=== PATIENT | female | born 1975 | race Caucasian/White ===

== ENCOUNTER 2020-04-13 22:43 | Inpatient (IN) | payer BC, OTHER ==
[~2020-04-13] VITALS: Ht 165.1 cm; Wt 79.3 kg
[2020-04-13] MEDS ORDERED: SODIUM CHLORIDE FLUSH 10ML SYR IVF ONE ×2 (23:00→23:30)
--- NOTE | 2020-04-13 23:06 | NUR ---
Patient presents to ER from [facility] c/o infection in her arm. Patient states she was bit by a dog a couple days ago; she got stitches in her hand and today, she is having pain all the way up her arm. Patient is in NAD. Respirations even and unlabored.
[2020-04-13] MEDS ORDERED: ONDANSETRON 2MG/ML, 2ML ONE (23:25)
[2020-04-13] MEDS ORDERED: HYDROmorphone 1 MG/ML, 1ML INJ ONE (23:25)
[2020-04-13] MEDS ORDERED: HYDROmorphone 1 MG/ML, 1ML INJ IVPush PRN (23:30)
[2020-04-13] MEDS ORDERED: ONDANSETRON 2MG/ML, 2ML IVPush ONE (23:30)
[2020-04-14] MEDS ORDERED: OMNIPAQUE 350 MG/ML, 100ML BOTTLE ONE (00:01)
[2020-04-14 00:24] LABS: BASOPHILS # (AUTO) 0.03 x10^3/uL (0-0.1); BASOPHILS % (AUTO) 0 % (0-1); EOSINOPHILS # (AUTO) 0.19 x10^3/uL (0-0.4); EOSINOPHILS % (AUTO) 2 % (1-7); LYMPHOCYTES # (AUTO) 1.65 x10^3/uL (1-3.4); LYMPHOCYTES % (AUTO) 16 % (22-44); MD NO; MEAN CORPUSCULAR HGB CONC 33.2 g/dL (32.4-35.8); MEAN CORPUSCULAR VOLUME 87.2 fL (80-100); MEAN PLATELET VOLUME 8.8 fL (7.4-10.4); MONOCYTES # (AUTO) 0.66 x10^3/uL (0.2-0.8); MONOCYTES % (AUTO) 7 % (2-9); NEUTROPHILS # (AUTO) 7.71 x10^3/uL (1.8-6.8); NEUTROPHILS % (AUTO) 75 % (42-75); PLATELET COUNT 247 x10^3/uL (130-400); RED BLOOD COUNT 4.36 x10^6/uL (3.82-5.3); RED CELL DISTRIBUTION WIDTH 14.2 % (9.6-15.2)
[2020-04-14] MEDS ORDERED: POLYETHYLENE GLYCOL 17 GM PACKET PO PRN (00:30)
[2020-04-14] MEDS ORDERED: DIPH,PERTUSS(ACELL),TET VAC/PF NC IM-VACC ONE (00:30)
[2020-04-14] MEDS ORDERED: BISACODYL 10 MG SUPP PR PRN (00:30)
[2020-04-14] MEDS ORDERED: hydrALAzine 20 MG/ML, 1ML IVPush PRN (00:30)
--- NOTE | 2020-04-14 00:30 | NUR ---
Report given to BRIGID Boo. Patient to be transferred to room 461.
[2020-04-14 00:33] LABS: ALBUMIN 3.6 g/dL (3.4-5.0); ANION GAP 5 mmol/L (5-15); CALCIUM 8.1 mg/dL (8.5-10.1); CHLORIDE 111 mmol/L (98-107); CREATININE 0.75 mg/dL (0.55-1.02)
[2020-04-14 00:44] VITALS: BP 94/62
[2020-04-14] MEDS ORDERED: PHARMACOKINETIC CONSULTATION MC ONE (01:00)
[2020-04-14] MEDS ORDERED: VANCOMYCIN PER PHARMACY MC PRN (01:00)
[2020-04-14] MEDS ORDERED: PHARMACOKINETIC MONITORING MC PRN (01:00)
[2020-04-14] MEDS: ACETAMINOPHEN 325 MG TABLET PO PRN ×3 (01:27→11:49)
[2020-04-14] MEDS: morphine SULFATE 10 MG/ML, 1ML IVPush PRN ×3 (01:28→15:24)
[2020-04-14] MEDS: POTASSIUM CHLORIDE 20 MEQ in LACTATED RINGERS 1,000 ML IV SCH ×2 (01:41→20:49)
[2020-04-14] MEDS: PIPERACILLIN/TAZO/PMX 3.375GM 50 ML IV SCH ×3 (01:41→17:52)
[2020-04-14] MEDS: VANCOMYCIN 1,300 MG in SODIUM CHLORIDE 0.9% 250 ML IV SCH ×2 (02:20→13:36)
[2020-04-14] MEDS: ENOXAPARIN 40 MG/0.4 ML SQ SCH (04:58)
[2020-04-14 06:06] VITALS: BP 88/56
[2020-04-14 07:53] VITALS: BP 96/62
[2020-04-14 08:28] LABS: BASOPHILS # (AUTO) 0.08 x10^3/uL (0-0.1); BASOPHILS % (AUTO) 1 % (0-1); EOSINOPHILS # (AUTO) 0.14 x10^3/uL (0-0.4); EOSINOPHILS % (AUTO) 1 % (1-7); LYMPHOCYTES # (AUTO) 1.66 x10^3/uL (1-3.4); LYMPHOCYTES % (AUTO) 17 % (22-44); MD NO; MEAN CORPUSCULAR HEMOGLOBIN 28.7 pg (27.0-34.8); MEAN CORPUSCULAR HGB CONC 32.5 g/dL (32.4-35.8); MEAN CORPUSCULAR VOLUME 88.5 fL (80-100); MONOCYTES # (AUTO) 0.64 x10^3/uL (0.2-0.8); MONOCYTES % (AUTO) 7 % (2-9); NEUTROPHILS # (AUTO) 7.08 x10^3/uL (1.8-6.8); NEUTROPHILS % (AUTO) 74 % (42-75); PLATELET COUNT 269 x10^3/uL (130-400); RED BLOOD COUNT 4.36 x10^6/uL (3.82-5.3); RED CELL DISTRIBUTION WIDTH 14.1 % (9.6-15.2)
[2020-04-14 08:39] LABS: ALANINE AMINOTRANSFERASE 35 U/L (12-78); ALBUMIN 3.5 g/dL (3.4-5.0); ANION GAP 7 mmol/L (5-15); CALCIUM 8.6 mg/dL (8.5-10.1); CHLORIDE 115 mmol/L (98-107); CREATININE 0.61 mg/dL (0.55-1.02)
[2020-04-14 08:41] LABS: ALKALINE PHOSPHATASE 40 U/L (45-117); BILIRUBIN,TOTAL 0.6 mg/dL (0.2-1.0); TOTAL PROTEIN 6.8 g/dL (6.4-8.2)
[2020-04-14] MEDS: SENNA/DOCUSATE TABLET PO SCH (09:00)
[2020-04-14] MEDS ORDERED: GADOTERATE 7.5 MMOL/15 ML SYR ONE (13:13)
[2020-04-14 13:43] VITALS: BP 103/69
[2020-04-14] MEDS: HYDROcodone/APAP 5/325 TABLET PO PRN ×2 (16:11→20:29)
[2020-04-14 19:07] VITALS: BP 94/60
[2020-04-15] MEDS: HYDROcodone/APAP 5/325 TABLET PO PRN (00:39)
[2020-04-15 00:56] VITALS: BP 90/61
[2020-04-15] MEDS: PIPERACILLIN/TAZO/PMX 3.375GM 50 ML IV SCH ×4 (01:52→23:28)
[2020-04-15] MEDS: VANCOMYCIN 1,300 MG in SODIUM CHLORIDE 0.9% 250 ML IV SCH ×2 (02:30→14:02)
[2020-04-15] MEDS: ENOXAPARIN 40 MG/0.4 ML SQ SCH (04:59)
[2020-04-15 05:38] LABS: ANION GAP 5 mmol/L (5-15); CALCIUM 8.3 mg/dL (8.5-10.1); CHLORIDE 111 mmol/L (98-107); CREATININE 0.68 mg/dL (0.55-1.02)
[2020-04-15 05:44] LABS: BASOPHILS # (AUTO) 0.04 x10^3/uL (0-0.1); BASOPHILS % (AUTO) 1 % (0-1); EOSINOPHILS # (AUTO) 0.26 x10^3/uL (0-0.4); EOSINOPHILS % (AUTO) 3 % (1-7); LYMPHOCYTES # (AUTO) 1.89 x10^3/uL (1-3.4); LYMPHOCYTES % (AUTO) 25 % (22-44); MD NO; MEAN CORPUSCULAR HEMOGLOBIN 29.3 pg (27.0-34.8); MEAN CORPUSCULAR HGB CONC 33.2 g/dL (32.4-35.8); MEAN CORPUSCULAR VOLUME 88.4 fL (80-100); MEAN PLATELET VOLUME 8.9 fL (7.4-10.4); MONOCYTES # (AUTO) 0.49 x10^3/uL (0.2-0.8); MONOCYTES % (AUTO) 7 % (2-9); NEUTROPHILS # (AUTO) 4.86 x10^3/uL (1.8-6.8); NEUTROPHILS % (AUTO) 64 % (42-75); PLATELET COUNT 244 x10^3/uL (130-400); RED CELL DISTRIBUTION WIDTH 14.4 % (9.6-15.2)
[2020-04-15] MEDS: ACETAMINOPHEN 325 MG TABLET PO PRN ×2 (07:35→12:20)
[2020-04-15] MEDS: SENNA/DOCUSATE TABLET PO SCH (07:35)
[2020-04-15 07:46] VITALS: BP 105/72
[2020-04-15] MEDS: ONDANSETRON 2MG/ML, 2ML IVPush PRN ×2 (09:26→15:13)
[2020-04-15] MEDS: POTASSIUM CHLORIDE 20 MEQ in LACTATED RINGERS 1,000 ML IV SCH (12:17)
[2020-04-15 14:05] VITALS: BP 108/72
[2020-04-15] MEDS ORDERED: IBUPROFEN 600 MG TABLET ONE (14:48)
[2020-04-15] MEDS: IBUPROFEN 600 MG TABLET PO PRN (14:49)
[2020-04-15 19:32] VITALS: BP 98/51
[2020-04-15] MEDS: BUTALB/APAP/CAFFEINE 50MG/325MG/40MG PO PRN (21:42)
[2020-04-16] MEDS: VANCOMYCIN 1,300 MG in SODIUM CHLORIDE 0.9% 250 ML IV SCH ×2 (02:18→14:17)
[2020-04-16 02:21] VITALS: BP 90/52
[2020-04-16] MEDS: BUTALB/APAP/CAFFEINE 50MG/325MG/40MG PO PRN ×3 (04:44→14:18)
[2020-04-16] MEDS: POTASSIUM CHLORIDE 20 MEQ in LACTATED RINGERS 1,000 ML IV SCH ×2 (04:44→23:18)
[2020-04-16] MEDS: ENOXAPARIN 40 MG/0.4 ML SQ SCH (04:45)
[2020-04-16] MEDS: PIPERACILLIN/TAZO/PMX 3.375GM 50 ML IV SCH ×4 (05:11→23:18)
[2020-04-16] MEDS: IBUPROFEN 600 MG TABLET PO PRN ×3 (05:15→16:59)
[2020-04-16 07:21] VITALS: BP 110/73
[2020-04-16 08:49] LABS: BASOPHILS # (AUTO) 0.05 x10^3/uL (0-0.1); BASOPHILS % (AUTO) 1 % (0-1); EOSINOPHILS # (AUTO) 0.16 x10^3/uL (0-0.4); EOSINOPHILS % (AUTO) 2 % (1-7); LYMPHOCYTES # (AUTO) 1.45 x10^3/uL (1-3.4); LYMPHOCYTES % (AUTO) 21 % (22-44); MD NO; MEAN CORPUSCULAR HEMOGLOBIN 28.6 pg (27.0-34.8); MEAN CORPUSCULAR HGB CONC 32.3 g/dL (32.4-35.8); MEAN CORPUSCULAR VOLUME 88.5 fL (80-100); MEAN PLATELET VOLUME 8.6 fL (7.4-10.4); MONOCYTES # (AUTO) 0.34 x10^3/uL (0.2-0.8); MONOCYTES % (AUTO) 5 % (2-9); NEUTROPHILS # (AUTO) 4.79 x10^3/uL (1.8-6.8); NEUTROPHILS % (AUTO) 71 % (42-75); PLATELET COUNT 279 x10^3/uL (130-400); RED BLOOD COUNT 4.23 x10^6/uL (3.82-5.3); RED CELL DISTRIBUTION WIDTH 14.3 % (9.6-15.2)
[2020-04-16 08:59] LABS: ANION GAP 7 mmol/L (5-15); CALCIUM 8.8 mg/dL (8.5-10.1); CHLORIDE 113 mmol/L (98-107); CREATININE 0.78 mg/dL (0.55-1.02)
[2020-04-16] MEDS: SENNA/DOCUSATE TABLET PO SCH (09:01)
[2020-04-16 13:23] VITALS: BP 99/66
[2020-04-16 16:27] VITALS: BP 118/81
[2020-04-16 20:16] VITALS: BP 117/77
[2020-04-17 00:11] VITALS: BP 113/73
[2020-04-17] MEDS: VANCOMYCIN 1,300 MG in SODIUM CHLORIDE 0.9% 250 ML IV SCH (02:00)
[2020-04-17] MEDS: ENOXAPARIN 40 MG/0.4 ML SQ SCH ×2 (05:00→08:54)
[2020-04-17] MEDS: PIPERACILLIN/TAZO/PMX 3.375GM 50 ML IV SCH ×2 (05:02→11:30)
[2020-04-17] MEDS: SENNA/DOCUSATE TABLET PO SCH (08:54)
[2020-04-17 08:55] VITALS: BP 106/71
[2020-04-17] MEDS ORDERED: AMOX1TAB64 PO (10:44)
[2020-04-17] MEDS ORDERED: ACET325T26 PO (10:44)
[2020-04-17] MEDS ORDERED: LACT1CAP35 PO (10:44)
[2020-04-17] MEDS: POTASSIUM CHLORIDE 20 MEQ in LACTATED RINGERS 1,000 ML IV SCH (12:04)
== END 2020-04-17 12:25 | disposition home or self-care (01) | DRG 603 ==
LOC: ED 23:17 → OBSVTOIN 04-14 00:09 → EDIP 04-14 00:09 → 4NE 04-14 00:35 → 3N 04-16 16:13 → DCLOUNGE 04-17 12:20
PROVIDERS: ADMIT Internal Medicine; ATTEND Internal Medicine
DX: L03.113 Cellulitis of right upper limb (principal); S61.451A Open bite of right hand, initial encounter; M65.9 Synovitis and tenosynovitis, unspecified; D72.829 Elevated white blood cell count, unspecified; Y93.89 Activity, other specified; Y92.89 Other specified places as the place of occurrence of the external cause; Y99.8 Other external cause status; Z98.51 Tubal ligation status; W54.0XXA Bitten by dog, initial encounter
CPT/HCPCS: 36415; 80048; 80053; 80202; 82040; 85025; 87040; 93005; G0378; J1650; J2405; J2543; J3370; J3480; Q9967; A9575; J2270; J7050; J7120